=== PATIENT | male | born 2000 | race Caucasian/White ===

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

== ENCOUNTER 2021-02-02 00:40 | Emergency (ER) | payer OTHER ==
[~2021-02-02] VITALS: Ht 170.2 cm; Wt 65.9 kg
[2021-02-02 01:00] VITALS: BP 98/56
[2021-02-02] MEDS ORDERED: PERTUSS(ACELL),DIPH,TET VAC/PF 0.5 ML SYRINGE IM. ONE (01:00)
[2021-02-02] MEDS ORDERED: LIDOCAINE 2%/EPI 1:200,000/PF 10 ML VIAL ID ONE (01:00)
== END 2021-02-02 05:17 | disposition home or self-care (01) ==
LOC: EMS 00:41
DX: S01.01XA Laceration without foreign body of scalp, initial encounter (principal); F17.210 Nicotine dependence, cigarettes, uncomplicated; F12.90 Cannabis use, unspecified, uncomplicated; V09.9XXA Pedestrian injured in unspecified transport accident, initial encounter; Y93.89 Activity, other specified; Y92.488 Other paved roadways as the place of occurrence of the external cause; Y99.8 Other external cause status
CPT/HCPCS: 12001; 70450; 72125; 90471; 90715; 99285; G0480

== ENCOUNTER 2021-07-23 14:12 | Emergency (ER) | payer OTHER ==
[~2021-07-23] VITALS: Ht 167.6 cm; Wt 63.6 kg
[2021-07-23] MEDS ORDERED: CefTRIAXone SODIUM 1 GM/VIAL IM ONE (14:45)
[2021-07-23] MEDS ORDERED: LIDOCAINE/PF 1% 2 ML VIAL IM ONE (14:45)
[2021-07-23] MEDS ORDERED: AZITHROMYCIN 500 MG TABLET PO ONE (14:45)
[2021-07-23 15:34] VITALS: BP 120/80
== END 2021-07-23 15:35 | disposition home or self-care (01) ==
LOC: EMS 14:12
DX: N34.2 Other urethritis (principal); F12.90 Cannabis use, unspecified, uncomplicated
CPT/HCPCS: 87491; 87591; 96372; 99283; J0696; J3490; Q9967

== ENCOUNTER 2021-12-07 14:07 | Emergency (ER) | payer OTHER ==
[~2021-12-07] VITALS: Ht 167.6 cm; Wt 72.7 kg
[2021-12-07 15:20] VITALS: BP 117/53
[2021-12-07] MEDS ORDERED: LIDOCAINE/PF 1% 2 ML VIAL IM ONE (15:45)
[2021-12-07] MEDS ORDERED: CefTRIAXone SODIUM 1 GM/VIAL IM ONE (15:45)
[2021-12-07] MEDS ORDERED: DOXY-354 PO (15:54)
[2021-12-07 16:44] LABS: BILIRUBIN,URINE NEGATIVE (NEGATIVE); GLUCOSE, URINE (UA) NEGATIVE (NEGATIVE); KETONES,URINE NEGATIVE (NEGATIVE); LEUKOCYTE ESTERASE ,URINE MODERATE (NEGATIVE); NITRATE,URINE NEGATIVE (NEGATIVE); OCCULT BLOOD,URINE NEGATIVE (NEGATIVE); PH,URINE 6.5 (5.0-8.0); PROTEIN,URINE NEGATIVE (NEGATIVE); SPECIFIC GRAVITIY, URINE 1.024 (1.003-1.030); UROBILINOGEN,URINE <=1.0 mg/dL (<=1.0)
[2021-12-07 17:02] LABS: APPEARANCE,URINE HAZY (CLEAR)
[2021-12-07 17:03] LABS: BACTERIA,URINE Few /HPF (None Seen); RBC,URINE None Seen /HPF (0-2); WBC,URINE 26-50 /HPF (0-5)
== END 2021-12-07 16:15 | disposition home or self-care (01) ==
LOC: EMS 14:09
DX: R36.9 Urethral discharge, unspecified (principal); Z11.3 Encounter for screening for infections with a predominantly sexual mode of transmission
CPT/HCPCS: 81001; 87086; 87491; 87591; 96372; 99283; J0696; J3490

== ENCOUNTER 2022-04-17 14:12 | Emergency (ER) | payer OTHER ==
[~2022-04-17] VITALS: Ht 170.2 cm; Wt 79.5 kg
[~2022-04-17 14:12] MED LIST: DOXY-354 PO
[2022-04-17 15:36] VITALS: BP 115/65
[2022-04-17] MEDS ORDERED: CefTRIAXone SODIUM 1 GM/VIAL IM ONE (16:00)
[2022-04-17] MEDS ORDERED: LIDOCAINE/PF 1% 2 ML VIAL IM ONE (16:00)
[2022-04-17] MEDS ORDERED: AZITHROMYCIN 500 MG TABLET PO ONE (16:00)
== END 2022-04-17 22:53 | disposition home or self-care (01) ==
LOC: EMS 14:13
DX: N34.2 Other urethritis (principal); Z91.013 Allergy to seafood
CPT/HCPCS: 99283; 96372; J0696; J3490; Q9967

== ENCOUNTER 2024-06-30 14:54 | Emergency (ER) | payer OTHER ==
[~2024-06-30] VITALS: Ht 170.2 cm; Wt 81.8 kg
[2024-06-30 15:02] VITALS: TEMP 98.1
[2024-06-30 17:16] LABS: APPEARANCE,URINE CLEAR (CLEAR); BILIRUBIN,URINE NEGATIVE (NEGATIVE); COLOR,URINE LIGHT YELLOW (YELLOW); GLUCOSE, URINE (UA) NEGATIVE (NEGATIVE); KETONES,URINE NEGATIVE (NEGATIVE); LEUKOCYTE ESTERASE ,URINE LARGE (NEGATIVE); NITRATE,URINE NEGATIVE (NEGATIVE); OCCULT BLOOD,URINE TRACE (NEGATIVE); PROTEIN,URINE NEGATIVE (NEGATIVE); SPECIFIC GRAVITIY, URINE 1.013 (1.003-1.030); UROBILINOGEN,URINE <=1.0 mg/dL (<=1.0)
[2024-06-30 17:23] LABS: BACTERIA,URINE Few /HPF (None Seen); SQUAMOUS EPITHELIAL CELL,UR Rare /LPF (None Seen); WBC,URINE 51-100 /HPF (0-5)
[2024-06-30] MEDS: CefTRIAXone SODIUM 1 GM/VIAL IM ONE (17:43)
[2024-06-30] MEDS: LIDOCAINE/PF 1% 2 ML VIAL IM ONE (17:43)
[2024-06-30 18:00] VITALS: BP 118/78; PULSE 90; RESP 14; O2SAT 98
[2024-06-30] MEDS ORDERED: CEPH-558 PO (18:00)
[2024-06-30] MEDS ORDERED: AZIT-167 PO (18:00)
[2024-07-01] MEDS ORDERED: DiphenhydrAMINE HCL 50 MG/ML VIAL ONE (09:04)
[2024-07-01] MEDS ORDERED: NALOXONE HCL 0.4 MG/ML VIAL ONE (09:04)
[2024-07-01] MEDS ORDERED: SODIUM TETRADECYL SULFATE 3% 60 MG/2 ML VIAL IVP ONE (09:04)
[2024-07-01] MEDS ORDERED: FLUMAZENIL 0.1 MG/ML 5 ML VIAL IVP ONE (09:04)
[2024-07-01] MEDS ORDERED: EPINEPHrine 1:10,000 [1 MG/10 ML] SYRINGE ONE (09:04)
[2024-07-01] MEDS ORDERED: ATROPINE SULFATE 0.1 MG/ML 10 ML SYRINGE IVP ONE (09:06)
== END 2024-06-30 18:15 | disposition home or self-care (01) ==
LOC: EMS 14:55
DX: N34.2 Other urethritis (principal); R36.9 Urethral discharge, unspecified; Z11.3 Encounter for screening for infections with a predominantly sexual mode of transmission; F12.90 Cannabis use, unspecified, uncomplicated; Z91.013 Allergy to seafood; Z79.899 Other long term (current) drug therapy
CPT/HCPCS: 99283; 81001; 87086; 87186; 87491; 87591; 96372; J0696; J3490; J0171; J0461; J1200; J2310